=== PATIENT | male | born 1955 | race Caucasian/White ===

== ENCOUNTER 2016-12-08 21:51 | Inpatient (IN) | payer MEDICAID ==
[~2016-12-08] VITALS: Ht 165.1 cm; Wt 71.7 kg
[2016-12-08 23:09] LABS: BASOPHIL % 0.1 % (0-2); PLATELET COUNT 300 x10^3mcL (130-400); RED CELL DISTRIBUTION WIDTH 12.9 % (11.5-14.5)
[2016-12-08 23:19] LABS: CALCIUM 8.8 mg/dL (8.5-10.1); CARBON DIOXIDE 29.6 mmol/L (21-32); CHLORIDE SERUM 95 mmol/L (98-107); GFR1 > 60 mL/min; GLUCOSE SERUM 394 mg/dL (74-106); POTASSIUM SERUM 3.8 mmol/L (3.5-5.1); SODIUM SERUM 132 mmol/L (136-145)
[2016-12-08 23:23] LABS: ALKALINE PHOSPHATASE 119 U/L (46-116); ALT/SGPT 13 U/L (16-63); AST/SGOT 13 U/L (15-37); BILIRUBIN TOTAL 1.3 mg/dL (0.20-1.00); TOTAL PROTEIN, SERUM 7.4 g/dL (6.4-8.2)
[2016-12-09 00:42] LABS: UA SPECIFIC GRAVITY <=1.005 (1.005-1.035); microscopic required? YES; urine erythrocyte 1+ (NEGATIVE)
[2016-12-09] MEDS ORDERED: METFORMIN HCL1000 MG PO (08:32)
[2016-12-09] MEDS ORDERED: LISINOPRIL40 MG PO (08:43)
[2016-12-09 08:45] LABS: MAGNESIUM 2.2 mg/dL (1.8-2.4); PHOSPHOROUS 3.4 mg/dL (2.5-4.9)
[2016-12-09] MEDS ORDERED: GLUCOTROL10 MG PO (08:45)
[2016-12-09] MEDS ORDERED: HYDROCHLOROTHIA25 MG PO (08:47)
[2016-12-09 08:48] LABS: CHOLESTEROL/HDL RATIO 3.5
[2016-12-09] MEDS ORDERED: SIMVASTATIN20 M1 PO (08:49)
[2016-12-09] MEDS ORDERED: AMLODIPINE BESY10 M2 PO (08:50)
[2016-12-09 08:53] LABS: FREE T4 0.92 ng/dL (0.76-1.46); FREE THYROXINE INDEX 2.2 ug/dL (1.4-4.5); T4(THYROXINE) 6.2 ug/dL (4.7-13.3)
[2016-12-09 09:05] LABS: T3 TOTAL 0.77 ng/mL
[2016-12-09 10:00] LABS: AMPHETAMINE QUAL UR NONE DETECTED (NEG <=1000)
[2016-12-09 10:42] VITALS: BP 154/85
[2016-12-09 11:03] VITALS: BP 145/83
[2016-12-09 14:16] VITALS: BP 123/72
[2016-12-09 17:38] VITALS: BP 120/69
[2016-12-09 21:52] VITALS: BP 180/83
[2016-12-09 23:25] VITALS: BP 145/64
[2016-12-10 05:58] LABS: BASOPHIL % 0.4 % (0-2); PLATELET COUNT 290 x10^3mcL (130-400); RED CELL DISTRIBUTION WIDTH 12.7 % (11.5-14.5)
[2016-12-10 06:06] LABS: CALCIUM 8.9 mg/dL (8.5-10.1); CARBON DIOXIDE 27.9 mmol/L (21-32); CHLORIDE SERUM 99 mmol/L (98-107); GFR1 > 60 mL/min; GLUCOSE SERUM 190 mg/dL (74-106); MAGNESIUM 2.5 mg/dL (1.8-2.4); PHOSPHOROUS 3.4 mg/dL (2.5-4.9); POTASSIUM SERUM 3.4 mmol/L (3.5-5.1); SODIUM SERUM 138 mmol/L (136-145)
[2016-12-10 10:10] VITALS: BP 145/74
[2016-12-10 18:07] VITALS: BP 124/62
[2016-12-10 21:55] VITALS: BP 98/80
[2016-12-11 01:40] VITALS: BP 105/66
[2016-12-11 06:23] LABS: BASOPHIL % 0.3 % (0-2); PLATELET COUNT 317 x10^3mcL (130-400); RED CELL DISTRIBUTION WIDTH 13.1 % (11.5-14.5)
[2016-12-11 06:24] VITALS: BP 135/75
[2016-12-11 06:29] LABS: CARBON DIOXIDE 28.5 mmol/L (21-32); CHLORIDE SERUM 100 mmol/L (98-107); CREATININE SERUM 1.1 mg/dL (0.7-1.3); GFR1 > 60 mL/min; GLUCOSE SERUM 126 mg/dL (74-106); MAGNESIUM 1.7 mg/dL (1.8-2.4); PHOSPHOROUS 4.5 mg/dL (2.5-4.9); POTASSIUM SERUM 3.3 mmol/L (3.5-5.1); SODIUM SERUM 137 mmol/L (136-145)
[2016-12-11 09:13] VITALS: BP 128/73
[2016-12-11] MEDS ORDERED: NEU100 PO (15:11)
[2016-12-11] MEDS ORDERED: ECO81 PO (15:11)
[2016-12-11] MEDS ORDERED: SYN25 PO (15:13)
[2016-12-11] MEDS ORDERED: LEVAQUIN750 MG PO (15:14)
[2016-12-11] MEDS ORDERED: CLINDAMYCIN HC300 MG PO (15:16)
[2016-12-11] MEDS ORDERED: LAC PO (15:16)
[2016-12-11] MEDS ORDERED: LANTUS100 U/ML SC (16:05)
[2016-12-11 16:32] VITALS: BP 128/73
[2016-12-11] MEDS ORDERED: METFORMIN HCL1000 MG PO (16:41)
[2016-12-11] MEDS ORDERED: GLU10 PO (16:42)
[2016-12-11] MEDS ORDERED: APAP/HYDROCODON1 T13 PO (16:53)
[2016-12-11] MEDS ORDERED: MOT800 PO (16:54)
[2016-12-11] MEDS ORDERED: LIPI20 PO (16:56)
[2016-12-11] MEDS ORDERED: AMLODIPINE BESY10 M2 PO (16:57)
[2016-12-11] MEDS ORDERED: LISINOPRIL40 MG PO (16:57)
[2016-12-11] MEDS ORDERED: HYDROCHLOROTHIA25 MG PO (16:58)
[2016-12-11] MEDS ORDERED: COL100 PO (17:02)
== END 2016-12-11 18:21 | disposition home or self-care (01) | DRG 305 ==
LOC: ED 21:51 → DU 12-09 05:03 → MU 12-09 05:03 → DU 12-09 06:31 → MU 12-10 10:10
PROVIDERS: Emergency Medicine; Family Medicine; Podiatrist; ADMIT Family Medicine
PROC: 0QBR0ZZ Excision of Left Toe Phalanx, Open Approach (ICD-10-PCS; 2016-12-09)
PROC: 0Y6N0ZD Detachment at Left Foot, Partial 4th Ray, Open Approach (ICD-10-PCS; principal; 2016-12-10 07:30)
DX: E11.69 Type 2 diabetes mellitus with other specified complication (principal); N17.0 Acute kidney failure with tubular necrosis; M86.172 Other acute osteomyelitis, left ankle and foot; E44.0 Moderate protein-calorie malnutrition; E11.40 Type 2 diabetes mellitus with diabetic neuropathy, unspecified; E83.42 Hypomagnesemia; I42.9 Cardiomyopathy, unspecified; E11.65 Type 2 diabetes mellitus with hyperglycemia; L97.521 Non-pressure chronic ulcer of other part of left foot limited to breakdown of skin; E87.1 Hypo-osmolality and hyponatremia; E11.51 Type 2 diabetes mellitus with diabetic peripheral angiopathy without gangrene; I10 Essential (primary) hypertension; E87.6 Hypokalemia; E78.5 Hyperlipidemia, unspecified; E03.9 Hypothyroidism, unspecified; Z89.411 Acquired absence of right great toe; Z79.84 Long term (current) use of oral hypoglycemic drugs; Z87.891 Personal history of nicotine dependence; Z91.19 Patient's noncompliance with other medical treatment and regimen
CPT/HCPCS: 80307; 83880; 84439; 94150; 97110-GP; 97116-GP; 97164; 97530-GP; J1644; J1815; J1956; J2060; J2250; J2270; J2543; J3010; J3490; J7030; Q0092

== ENCOUNTER 2016-12-29 16:10 | Inpatient (IN) | payer MEDICAID ==
[~2016-12-29] VITALS: Ht 165.1 cm; Wt 70.5 kg
[~2016-12-29 16:10] MED LIST: AMLODIPINE BESY10 M2 PO; APAP/HYDROCODON1 T13 PO; CLINDAMYCIN HC300 MG PO; COL100 PO; ECO81 PO; GLU10 PO; GLUCOTROL10 MG PO; HYDROCHLOROTHIA25 MG PO; LAC PO; LANTUS100 U/ML SC; LEVAQUIN750 MG PO; LIPI20 PO; LISINOPRIL40 MG PO; METFORMIN HCL1000 MG PO; MOT800 PO; NEU100 PO; SIMVASTATIN20 M1 PO; SYN25 PO
[2016-12-29 18:04] LABS: BASOPHIL % 0.3 % (0-2); PLATELET COUNT 395 x10^3mcL (130-400); RED CELL DISTRIBUTION WIDTH 12.5 % (11.5-14.5)
[2016-12-29 18:16] LABS: CALCIUM 8.8 mg/dL (8.5-10.1); CHLORIDE SERUM 94 mmol/L (98-107); CREATININE SERUM 1.1 mg/dL (0.7-1.3); GFR1 > 60 mL/min; GLUCOSE SERUM 413 mg/dL (74-106); POTASSIUM SERUM 3.3 mmol/L (3.5-5.1); SODIUM SERUM 132 mmol/L (136-145)
[2016-12-29 18:21] LABS: ALBUMIN 2.8 g/dL (3.4-5.0); ALKALINE PHOSPHATASE 116 U/L (46-116); ALT/SGPT 10 U/L (16-63); AST/SGOT 11 U/L (15-37); BILIRUBIN TOTAL 1.2 mg/dL (0.20-1.00); TOTAL PROTEIN, SERUM 7.7 g/dL (6.4-8.2)
[2016-12-29 20:11] LABS: MAGNESIUM 1.9 mg/dL (1.8-2.4); PHOSPHOROUS 3.2 mg/dL (2.5-4.9)
[2016-12-29 20:20] LABS: FREE T4 1.08 ng/dL (0.76-1.46); FREE THYROXINE INDEX 2.5 ug/dL (1.4-4.5); T3 TOTAL 0.52 ng/mL
[2016-12-29 20:32] LABS: AMPHETAMINE QUAL UR NONE DETECTED (NEG <=1000)
[2016-12-29 21:41] VITALS: BP 184/85
[2016-12-29 23:00] VITALS: BP 160/90
[2016-12-30 04:26] LABS: microscopic required? YES; urine erythrocyte 1+ (NEGATIVE)
[2016-12-30 08:40] LABS: BASOPHIL % 0.4 % (0-2); PLATELET COUNT 378 x10^3mcL (130-400); RED CELL DISTRIBUTION WIDTH 12.9 % (11.5-14.5)
[2016-12-30 09:11] LABS: CALCIUM 8.7 mg/dL (8.5-10.1); CARBON DIOXIDE 26.8 mmol/L (21-32); CHLORIDE SERUM 101 mmol/L (98-107); CREATININE SERUM 0.8 mg/dL (0.7-1.3); GFR1 > 60 mL/min; GLUCOSE SERUM 113 mg/dL (74-106); PHOSPHOROUS 2.8 mg/dL (2.5-4.9); POTASSIUM SERUM 3.3 mmol/L (3.5-5.1); SODIUM SERUM 138 mmol/L (136-145)
[2016-12-30 09:51] VITALS: BP 154/83
[2016-12-30 11:44] VITALS: BP 153/78
[2016-12-31 05:59] VITALS: BP 152/82
[2016-12-31 06:27] LABS: BASOPHIL % 0.2 % (0-2); PLATELET COUNT 354 x10^3mcL (130-400); RED CELL DISTRIBUTION WIDTH 12.7 % (11.5-14.5)
[2016-12-31 08:39] LABS: POTASSIUM SERUM 3.7 mmol/L (3.5-5.1); SODIUM SERUM 135 mmol/L (136-145)
[2016-12-31 08:40] LABS: CALCIUM 8.7 mg/dL (8.5-10.1); CHLORIDE SERUM 99 mmol/L (98-107); CREATININE SERUM 0.8 mg/dL (0.7-1.3); GFR1 > 60 mL/min; GLUCOSE SERUM 220 mg/dL (74-106); PHOSPHOROUS 3.8 mg/dL (2.5-4.9)
[2016-12-31 08:41] LABS: MAGNESIUM 1.9 mg/dL (1.8-2.4)
[2016-12-31 09:28] VITALS: BP 158/85
[2016-12-31 13:54] VITALS: BP 144/77
[2016-12-31 16:45] VITALS: BP 155/76
[2016-12-31 22:05] VITALS: BP 132/72
[2017-01-01 05:52] VITALS: BP 139/72
[2017-01-01 06:40] LABS: BASOPHIL % 0.5 % (0-2); PLATELET COUNT 351 x10^3mcL (130-400); RED CELL DISTRIBUTION WIDTH 12.5 % (11.5-14.5)
[2017-01-01 07:22] LABS: CALCIUM 8.4 mg/dL (8.5-10.1); CARBON DIOXIDE 24.3 mmol/L (21-32); CHLORIDE SERUM 97 mmol/L (98-107); CREATININE SERUM 0.9 mg/dL (0.7-1.3); GFR1 > 60 mL/min; GLUCOSE SERUM 213 mg/dL (74-106); MAGNESIUM 1.6 mg/dL (1.8-2.4); SODIUM SERUM 134 mmol/L (136-145)
[2017-01-01 09:27] LABS: POTASSIUM SERUM 2.8 mmol/L (3.5-5.1)
[2017-01-01 11:46] VITALS: BP 134/70
[2017-01-01 17:54] VITALS: BP 106/64
[2017-01-01 19:05] LABS: CARBON DIOXIDE 25.8 mmol/L (21-32); CHLORIDE SERUM 99 mmol/L (98-107); CREATININE SERUM 0.9 mg/dL (0.7-1.3); GFR1 > 60 mL/min; GLUCOSE SERUM 218 mg/dL (74-106); POTASSIUM SERUM 3.2 mmol/L (3.5-5.1); SODIUM SERUM 132 mmol/L (136-145)
[2017-01-01 22:10] VITALS: BP 120/67
[2017-01-02 05:10] VITALS: BP 119/67
[2017-01-02 05:55] LABS: BASOPHIL % 0.3 % (0-2); PLATELET COUNT 349 x10^3mcL (130-400); RED CELL DISTRIBUTION WIDTH 12.9 % (11.5-14.5)
[2017-01-02 06:05] LABS: CALCIUM 8.5 mg/dL (8.5-10.1); CARBON DIOXIDE 26.5 mmol/L (21-32); CHLORIDE SERUM 101 mmol/L (98-107); CREATININE SERUM 0.9 mg/dL (0.7-1.3); GFR1 > 60 mL/min; GLUCOSE SERUM 160 mg/dL (74-106); MAGNESIUM 2.1 mg/dL (1.8-2.4); PHOSPHOROUS 3.4 mg/dL (2.5-4.9); POTASSIUM SERUM 3.4 mmol/L (3.5-5.1); SODIUM SERUM 134 mmol/L (136-145)
[2017-01-02 09:00] VITALS: BP 124/73
[2017-01-02 13:04] VITALS: BP 124/73
[2017-01-02] MEDS ORDERED: LAC PO (15:08)
[2017-01-02] MEDS ORDERED: LEVAQUIN500 M1 PO (15:08)
[2017-01-02] MEDS ORDERED: MOT800 PO (15:09)
[2017-01-02 16:22] VITALS: Ht 165.1 cm; Wt 70.5 kg
== END 2017-01-02 18:15 | disposition home or self-care (01) | DRG 711 ==
LOC: ED 16:10 → MU 19:34 → DU 19:34 → MU 12-30 16:59
PROVIDERS: Emergency Medicine; Podiatrist; ADMIT Family Medicine
PROC: 0L8W0ZZ Division of Left Foot Tendon, Open Approach (ICD-10-PCS; 2016-12-30)
PROC: 0Y6N0ZD Detachment at Left Foot, Partial 4th Ray, Open Approach (ICD-10-PCS; principal; 2016-12-30 09:00)
DX: T81.4XXA Infection following a procedure, initial encounter (principal); N17.0 Acute kidney failure with tubular necrosis; E43 Unspecified severe protein-calorie malnutrition; D68.69 Other thrombophilia; E11.42 Type 2 diabetes mellitus with diabetic polyneuropathy; T81.31XA Disruption of external operation (surgical) wound, not elsewhere classified, initial encounter; M86.171 Other acute osteomyelitis, right ankle and foot; E11.51 Type 2 diabetes mellitus with diabetic peripheral angiopathy without gangrene; E11.65 Type 2 diabetes mellitus with hyperglycemia; L02.612 Cutaneous abscess of left foot; B96.4 Proteus (mirabilis) (morganii) as the cause of diseases classified elsewhere; B95.61 Methicillin susceptible Staphylococcus aureus infection as the cause of diseases classified elsewhere; B96.89 Other specified bacterial agents as the cause of diseases classified elsewhere; E11.69 Type 2 diabetes mellitus with other specified complication; E11.319 Type 2 diabetes mellitus with unspecified diabetic retinopathy without macular edema; E87.1 Hypo-osmolality and hyponatremia; E87.6 Hypokalemia; I16.0 Hypertensive urgency; E78.5 Hyperlipidemia, unspecified; E03.9 Hypothyroidism, unspecified; D63.8 Anemia in other chronic diseases classified elsewhere; Z68.25 Body mass index [BMI] 25.0-25.9, adult; Z91.19 Patient's noncompliance with other medical treatment and regimen; Y83.5 Amputation of limb(s) as the cause of abnormal reaction of the patient, or of later complication, without mention of misadventure at the time of the procedure; Y92.009 Unspecified place in unspecified non-institutional (private) residence as the place of occurrence of the external cause
CPT/HCPCS: 83880; 84439; 97110-GP; 97116-GP; 97530-GP; J0360; J1170; J1815; J2001; J2250; J2270; J2704; J3010; J3475; J3480; J3490; J7030; Q0092

== ENCOUNTER 2017-03-03 19:22 | Inpatient (IN) | payer MEDICAID ==
[~2017-03-03] VITALS: Ht 162.6 cm; Wt 64.0 kg
[~2017-03-03 19:22] MED LIST changes: +LEVAQUIN500 M1 PO
[2017-03-03 20:16] LABS: BASOPHIL % 0.5 % (0-2)
[2017-03-03 20:21] LABS: PLATELET COUNT 477 x10^3mcL (130-400); RED CELL DISTRIBUTION WIDTH 15.5 % (11.5-14.5)
[2017-03-03 20:27] LABS: BILIRUBIN TOTAL 0.66 mg/dL (0.20-1.00); C REACTIVE PROTEIN 6.7 mg/dL (<=0.9); CALCIUM 8.9 mg/dL (8.5-10.1); CARBON DIOXIDE 27.2 mmol/L (21-32); CREATININE SERUM 1.4 mg/dL (0.7-1.3)
[2017-03-03 20:32] LABS: CK-MB 1.7 ng/mL (0-3.6)
[2017-03-03 20:35] LABS: UA SPECIFIC GRAVITY <=1.005 (1.005-1.035); microscopic required? YES; urine erythrocyte TRACE (NEGATIVE)
[2017-03-03 20:35] LABS: ALBUMIN 3.1 g/dL (3.4-5.0); TOTAL PROTEIN, SERUM 8.5 g/dL (6.4-8.2)
[2017-03-03 20:40] LABS: POTASSIUM SERUM 2.8 mmol/L (3.5-5.1)
[2017-03-03 20:41] LABS: FREE T4 1.06 ng/dL (0.76-1.46); FREE THYROXINE INDEX 2.6 ug/dL (1.4-4.5); T4(THYROXINE) 6.9 ug/dL (4.7-13.3)
[2017-03-03 20:42] LABS: T3 TOTAL 0.72 ng/mL
[2017-03-03 22:04] LABS: MAGNESIUM 1.7 mg/dL (1.8-2.4); PHOSPHOROUS 2.7 mg/dL (2.5-4.9)
[2017-03-03 22:05] LABS: AMPHETAMINE QUAL UR NONE DETECTED (NEG <=1000)
[2017-03-03 22:05] LABS: CHOLESTEROL/HDL RATIO 5.2
[2017-03-03 22:48] VITALS: BP 198/97
[2017-03-03 23:57] LABS: ERYTHROCYTE SED RATE 87 mm/hr (0-20)
[2017-03-04] VITALS (7 sets, daily range): BP systolic 116–192; BP diastolic 64–100
[2017-03-04 07:16] LABS: BASOPHIL % 0.5 % (0-2); PLATELET COUNT 372 x10^3mcL (130-400); RED CELL DISTRIBUTION WIDTH 15.9 % (11.5-14.5)
[2017-03-04 08:29] LABS: CALCIUM 8.7 mg/dL (8.5-10.1); CARBON DIOXIDE 25.8 mmol/L (21-32); CREATININE SERUM 1.3 mg/dL (0.7-1.3)
[2017-03-04 08:38] LABS: POTASSIUM SERUM 2.9 mmol/L (3.5-5.1)
[2017-03-04 17:03] LABS: CALCIUM 8.7 mg/dL (8.5-10.1); CHLORIDE SERUM 104 mmol/L (98-107); CREATININE SERUM 1.1 mg/dL (0.7-1.3); GFR1 > 60 mL/min; GLUCOSE SERUM 348 mg/dL (74-106); POTASSIUM SERUM 3.4 mmol/L (3.5-5.1); SODIUM SERUM 141 mmol/L (136-145)
[2017-03-05 05:45] VITALS: BP 114/61
[2017-03-05 07:07] LABS: BASOPHIL % 0.4 % (0-2)
[2017-03-05 07:16] LABS: PLATELET COUNT 423 x10^3mcL (130-400); RED CELL DISTRIBUTION WIDTH 16.2 % (11.5-14.5)
[2017-03-05 07:48] LABS: CALCIUM 8.4 mg/dL (8.5-10.1); CARBON DIOXIDE 26.3 mmol/L (21-32); CREATININE SERUM 1.3 mg/dL (0.7-1.3); MAGNESIUM 1.8 mg/dL (1.8-2.4); PHOSPHOROUS 3.2 mg/dL (2.5-4.9); POTASSIUM SERUM 3.2 mmol/L (3.5-5.1)
[2017-03-05 10:45] VITALS: BP 168/91
[2017-03-05 12:42] VITALS: BP 144/77
[2017-03-05 17:24] VITALS: BP 173/89
[2017-03-05 21:25] VITALS: BP 159/84
[2017-03-06 06:18] VITALS: BP 155/92
[2017-03-06 06:36] LABS: BASOPHIL % 0.4 % (0-2)
[2017-03-06 06:58] LABS: PLATELET COUNT 433 x10^3mcL (130-400); RED CELL DISTRIBUTION WIDTH 15.9 % (11.5-14.5)
[2017-03-06 07:13] LABS: CALCIUM 8.4 mg/dL (8.5-10.1); CARBON DIOXIDE 25.3 mmol/L (21-32); CHLORIDE SERUM 103 mmol/L (98-107); CREATININE SERUM 0.9 mg/dL (0.7-1.3); GFR1 > 60 mL/min; GLUCOSE SERUM 169 mg/dL (74-106); MAGNESIUM 1.5 mg/dL (1.8-2.4); PHOSPHOROUS 3.2 mg/dL (2.5-4.9); SODIUM SERUM 142 mmol/L (136-145)
[2017-03-06 09:51] VITALS: BP 118/79
[2017-03-06 17:25] VITALS: BP 129/74
[2017-03-06 22:11] VITALS: BP 141/78
[2017-03-07 06:13] LABS: BASOPHIL % 0.6 % (0-2)
[2017-03-07 06:15] LABS: PLATELET COUNT 455 x10^3mcL (130-400); RED CELL DISTRIBUTION WIDTH 15.8 % (11.5-14.5)
[2017-03-07 06:21] LABS: CALCIUM 8.8 mg/dL (8.5-10.1); CARBON DIOXIDE 26.1 mmol/L (21-32); CHLORIDE SERUM 101 mmol/L (98-107); GFR1 > 60 mL/min; GLUCOSE SERUM 196 mg/dL (74-106); MAGNESIUM 2.1 mg/dL (1.8-2.4); PHOSPHOROUS 3.2 mg/dL (2.5-4.9); POTASSIUM SERUM 3.4 mmol/L (3.5-5.1); SODIUM SERUM 136 mmol/L (136-145)
[2017-03-07 06:42] VITALS: BP 122/77
[2017-03-07 10:59] VITALS: BP 141/76
[2017-03-07 17:13] VITALS: BP 142/82
[2017-03-07 19:35] VITALS: BP 134/46
[2017-03-08 06:42] LABS: BASOPHIL % 0.5 % (0-2)
[2017-03-08 06:43] LABS: PLATELET COUNT 438 x10^3mcL (130-400); RED CELL DISTRIBUTION WIDTH 15.6 % (11.5-14.5)
[2017-03-08 06:54] LABS: CALCIUM 8.6 mg/dL (8.5-10.1); CARBON DIOXIDE 25.9 mmol/L (21-32); CHLORIDE SERUM 103 mmol/L (98-107); GFR1 > 60 mL/min; GLUCOSE SERUM 99 mg/dL (74-106); MAGNESIUM 1.5 mg/dL (1.8-2.4); PHOSPHOROUS 2.9 mg/dL (2.5-4.9); POTASSIUM SERUM 3.3 mmol/L (3.5-5.1); SODIUM SERUM 138 mmol/L (136-145)
[2017-03-08 09:00] VITALS: BP 158/90
[2017-03-08 14:31] VITALS: BP 124/65
[2017-03-08 21:01] VITALS: BP 125/75
[2017-03-09 07:15] LABS: CALCIUM 8.7 mg/dL (8.5-10.1); CHLORIDE SERUM 102 mmol/L (98-107); GFR1 > 60 mL/min; GLUCOSE SERUM 176 mg/dL (74-106); MAGNESIUM 1.7 mg/dL (1.8-2.4); POTASSIUM SERUM 3.4 mmol/L (3.5-5.1); SODIUM SERUM 137 mmol/L (136-145)
[2017-03-09 07:32] LABS: BASOPHIL % 0.5 % (0-2)
[2017-03-09 07:41] LABS: PLATELET COUNT 506 x10^3mcL (130-400); RED CELL DISTRIBUTION WIDTH 15.9 % (11.5-14.5)
[2017-03-09 08:17] VITALS: BP 141/83
[2017-03-09 22:32] VITALS: BP 137/72
[2017-03-10 06:29] LABS: BASOPHIL % 0.5 % (0-2)
[2017-03-10 06:36] LABS: CALCIUM 8.9 mg/dL (8.5-10.1); CARBON DIOXIDE 27.7 mmol/L (21-32); CHLORIDE SERUM 103 mmol/L (98-107); GFR1 > 60 mL/min; GLUCOSE SERUM 133 mg/dL (74-106); MAGNESIUM 2.3 mg/dL (1.8-2.4); POTASSIUM SERUM 3.4 mmol/L (3.5-5.1); SODIUM SERUM 140 mmol/L (136-145)
[2017-03-10 06:44] LABS: PLATELET COUNT 571 x10^3mcL (130-400); RED CELL DISTRIBUTION WIDTH 15.3 % (11.5-14.5)
[2017-03-10 07:00] VITALS: BP 135/72
[2017-03-10 18:00] VITALS: BP 144/72
[2017-03-10 19:40] VITALS: BP 119/67
[2017-03-11 09:00] LABS: BASOPHIL % 0.6 % (0-2)
[2017-03-11 09:30] VITALS: BP 146/81
[2017-03-11 09:47] LABS: PLATELET COUNT 580 x10^3mcL (130-400); RED CELL DISTRIBUTION WIDTH 15.7 % (11.5-14.5)
[2017-03-11 11:30] LABS: CALCIUM 8.9 mg/dL (8.5-10.1); CARBON DIOXIDE 26 mmol/L (21-32); CHLORIDE SERUM 103 mmol/L (98-107); CREATININE SERUM 0.9 mg/dL (0.7-1.3); GFR1 > 60 mL/min; GLUCOSE SERUM 60 mg/dL (74-106); POTASSIUM SERUM 3.4 mmol/L (3.5-5.1); SODIUM SERUM 140 mmol/L (136-145)
[2017-03-11 17:59] VITALS: BP 170/81
[2017-03-11 21:06] VITALS: BP 135/72
[2017-03-12 05:16] VITALS: BP 125/62
[2017-03-12 07:08] LABS: BASOPHIL % 0.9 % (0-2)
[2017-03-12 07:12] LABS: RED CELL DISTRIBUTION WIDTH 15.4 % (11.5-14.5)
[2017-03-12 07:13] LABS: PLATELET COUNT 584 x10^3mcL (130-400)
[2017-03-12 07:17] LABS: CALCIUM 8.5 mg/dL (8.5-10.1); CARBON DIOXIDE 28.9 mmol/L (21-32); CHLORIDE SERUM 104 mmol/L (98-107); CREATININE SERUM 0.9 mg/dL (0.7-1.3); GFR1 > 60 mL/min; GLUCOSE SERUM 160 mg/dL (74-106); POTASSIUM SERUM 3.4 mmol/L (3.5-5.1); SODIUM SERUM 140 mmol/L (136-145)
[2017-03-12 08:00] VITALS: BP 143/83
[2017-03-12 14:13] VITALS: BP 135/73
[2017-03-12 23:13] VITALS: BP 140/77
[2017-03-13 06:15] VITALS: BP 97/45
[2017-03-13 06:18] VITALS: BP 122/75
[2017-03-13 07:09] LABS: BASOPHIL % 0.8 % (0-2); PLATELET COUNT 550 x10^3mcL (130-400); RED CELL DISTRIBUTION WIDTH 15.4 % (11.5-14.5)
[2017-03-13 07:41] LABS: CALCIUM 8.6 mg/dL (8.5-10.1); CARBON DIOXIDE 27.7 mmol/L (21-32); CHLORIDE SERUM 105 mmol/L (98-107); CREATININE SERUM 0.9 mg/dL (0.7-1.3); GFR1 > 60 mL/min; GLUCOSE SERUM 81 mg/dL (74-106); SODIUM SERUM 139 mmol/L (136-145)
[2017-03-13 11:11] VITALS: BP 129/74
[2017-03-13 20:32] VITALS: BP 138/79
[2017-03-14 05:23] VITALS: BP 133/72
[2017-03-14 05:56] LABS: CALCIUM 9.1 mg/dL (8.5-10.1); CARBON DIOXIDE 26.2 mmol/L (21-32); CHLORIDE SERUM 103 mmol/L (98-107); GFR1 > 60 mL/min; GLUCOSE SERUM 89 mg/dL (74-106); MAGNESIUM 1.3 mg/dL (1.8-2.4); PHOSPHOROUS 2.1 mg/dL (2.5-4.9); POTASSIUM SERUM 3.5 mmol/L (3.5-5.1); SODIUM SERUM 138 mmol/L (136-145)
[2017-03-14 08:33] LABS: BASOPHIL % 0.7 % (0-2)
[2017-03-14 08:36] LABS: PLATELET COUNT 579 x10^3mcL (130-400); RED CELL DISTRIBUTION WIDTH 15.8 % (11.5-14.5)
[2017-03-14 09:08] VITALS: BP 135/83
[2017-03-14 13:15] VITALS: BP 144/83
[2017-03-14 20:50] VITALS: BP 120/65
[2017-03-15 06:42] LABS: CARBON DIOXIDE 22.9 mmol/L (21-32); CHLORIDE SERUM 106 mmol/L (98-107); GFR1 > 60 mL/min; GLUCOSE SERUM 152 mg/dL (74-106); MAGNESIUM 2.3 mg/dL (1.8-2.4); PHOSPHOROUS 2.7 mg/dL (2.5-4.9); POTASSIUM SERUM 3.8 mmol/L (3.5-5.1); SODIUM SERUM 140 mmol/L (136-145)
[2017-03-15 06:43] LABS: BASOPHIL % 0.8 % (0-2)
[2017-03-15 07:26] LABS: PLATELET COUNT 514 x10^3mcL (130-400)
[2017-03-15 17:52] VITALS: BP 130/77
[2017-03-15 21:58] VITALS: BP 134/75
[2017-03-16 05:37] VITALS: BP 134/56
[2017-03-16 05:59] LABS: BASOPHIL % 0.7 % (0-2)
[2017-03-16 06:13] LABS: CALCIUM 9.1 mg/dL (8.5-10.1); CARBON DIOXIDE 26.9 mmol/L (21-32); CHLORIDE SERUM 106 mmol/L (98-107); CREATININE SERUM 0.8 mg/dL (0.7-1.3); GFR1 > 60 mL/min; GLUCOSE SERUM 146 mg/dL (74-106); SODIUM SERUM 139 mmol/L (136-145)
[2017-03-16 06:39] LABS: PLATELET COUNT 545 x10^3mcL (130-400); RED CELL DISTRIBUTION WIDTH 16.3 % (11.5-14.5)
[2017-03-16 09:47] VITALS: BP 133/78
[2017-03-16 17:24] VITALS: BP 127/79
[2017-03-16 21:26] VITALS: BP 138/79
[2017-03-17 05:44] VITALS: BP 110/71
[2017-03-17 10:38] VITALS: BP 118/74
[2017-03-17 18:09] VITALS: BP 117/48
[2017-03-17 22:11] VITALS: BP 141/83
[2017-03-18 05:29] VITALS: BP 114/78
[2017-03-18 18:31] VITALS: BP 126/72
[2017-03-18 21:08] VITALS: BP 136/76
[2017-03-19 05:23] VITALS: BP 120/70
[2017-03-19 09:15] VITALS: BP 106/62
[2017-03-19 16:16] LABS: BASOPHIL % 0.3 % (0-2); PLATELET COUNT 379 x10^3mcL (130-400); RED CELL DISTRIBUTION WIDTH 16.4 % (11.5-14.5)
[2017-03-19 17:52] VITALS: BP 107/53
[2017-03-19 21:00] VITALS: BP 127/68
[2017-03-20 05:14] VITALS: BP 141/72
[2017-03-20 06:13] LABS: BASOPHIL % 0.2 % (0-2)
[2017-03-20 06:30] LABS: PLATELET COUNT 409 x10^3mcL (130-400); RED CELL DISTRIBUTION WIDTH 16.8 % (11.5-14.5)
[2017-03-20 09:58] VITALS: BP 140/74
[2017-03-20 17:28] VITALS: BP 151/73
[2017-03-20 22:01] VITALS: BP 129/72
[2017-03-21 05:19] VITALS: BP 137/74
[2017-03-21 09:41] VITALS: BP 136/75
[2017-03-21 19:20] VITALS: BP 109/64
[2017-03-21 21:34] VITALS: BP 144/80
[2017-03-21 22:48] VITALS: BP 141/75
[2017-03-21 23:28] VITALS: BP 144/80
[2017-03-22 05:48] VITALS: BP 134/68
[2017-03-22 06:03] LABS: BASOPHIL % 0.3 % (0-2)
[2017-03-22 06:11] LABS: PLATELET COUNT 465 x10^3mcL (130-400); RED CELL DISTRIBUTION WIDTH 17.1 % (11.5-14.5)
[2017-03-22 09:56] VITALS: BP 144/77
[2017-03-22 22:00] VITALS: BP 141/76
[2017-03-23 06:10] LABS: BASOPHIL % 0.4 % (0-2)
[2017-03-23 06:38] LABS: PLATELET COUNT 486 x10^3mcL (130-400); RED CELL DISTRIBUTION WIDTH 16.5 % (11.5-14.5)
[2017-03-23 06:45] VITALS: BP 139/83
[2017-03-23 09:50] VITALS: BP 128/72
[2017-03-23 21:01] VITALS: BP 120/69
[2017-03-24 06:20] VITALS: BP 122/69
[2017-03-24 12:43] VITALS: BP 122/69
[2017-03-24] MEDS ORDERED: QUETIAPINE FUMA25 M1 PO (13:13)
[2017-03-24] MEDS ORDERED: GLU10 PO (13:13)
[2017-03-24] MEDS ORDERED: LEXAPRO10 MG PO (13:13)
[2017-03-24] MEDS ORDERED: GEODON20 MG PO (13:13)
[2017-03-24] MEDS ORDERED: DUL10S RC (13:13)
== END 2017-03-24 16:25 | DRG 305 ==
LOC: ED 19:22 → MU 21:00 → DU 21:00 → MU 03-05 00:15
PROVIDERS: Family Medicine; Neuromusculoskeletal Medicine, Sports Medicine; Specialist; ADMIT Family Medicine
PROC: 0Y6J0Z3 Detachment at Left Lower Leg, Low, Open Approach (ICD-10-PCS; principal; 2017-03-05 07:30)
DX: T87.81 Dehiscence of amputation stump (principal); N17.0 Acute kidney failure with tubular necrosis; I50.43 Acute on chronic combined systolic (congestive) and diastolic (congestive) heart failure; K85.90 Acute pancreatitis without necrosis or infection, unspecified; M86.172 Other acute osteomyelitis, left ankle and foot; E11.69 Type 2 diabetes mellitus with other specified complication; E11.52 Type 2 diabetes mellitus with diabetic peripheral angiopathy with gangrene; B96.1 Klebsiella pneumoniae [K. pneumoniae] as the cause of diseases classified elsewhere; B96.89 Other specified bacterial agents as the cause of diseases classified elsewhere; D68.69 Other thrombophilia; E11.65 Type 2 diabetes mellitus with hyperglycemia; E44.1 Mild protein-calorie malnutrition; E87.1 Hypo-osmolality and hyponatremia; I11.0 Hypertensive heart disease with heart failure; E87.6 Hypokalemia; E78.5 Hyperlipidemia, unspecified; E11.42 Type 2 diabetes mellitus with diabetic polyneuropathy; D63.8 Anemia in other chronic diseases classified elsewhere; E86.0 Dehydration; E03.9 Hypothyroidism, unspecified; J98.11 Atelectasis; F39 Unspecified mood [affective] disorder; Z68.24 Body mass index [BMI] 24.0-24.9, adult; Z89.411 Acquired absence of right great toe; Z89.422 Acquired absence of other left toe(s); Z79.4 Long term (current) use of insulin; Z79.82 Long term (current) use of aspirin; Z79.84 Long term (current) use of oral hypoglycemic drugs; Z91.19 Patient's noncompliance with other medical treatment and regimen; Y83.5 Amputation of limb(s) as the cause of abnormal reaction of the patient, or of later complication, without mention of misadventure at the time of the procedure; Y92.009 Unspecified place in unspecified non-institutional (private) residence as the place of occurrence of the external cause
CPT/HCPCS: 36600; 83880; 84439; 90715; 94150; 97110-GP; 97530-GP; 97542-GP; G0480; J0360; J0696; J1644; J1815; J2060; J2175; J2250; J2270; J2405; J2543; J2704; J3010; J3475; J3480; J3486; J3490; J7030; J7042; J7050; J7620; Q0092